=== PATIENT | male | born 1985 | race Caucasian/White ===

== ENCOUNTER 2017-04-16 21:16 | Emergency (ER) | payer SELFPAY ==
[~2017-04-16] VITALS: Ht 193 cm; Wt 150.0 kg
[2017-04-16 21:18] VITALS: BP 144/94; PULSE 98; RESP 16; TEMP 97.8; O2SAT 98
[2017-04-16 23:41] VITALS: BP 154/103; PULSE 78; RESP 15; O2SAT 99
--- NOTE | 2017-04-16 23:50 | PD ---
HPI Chief Complaint: Psychiatric Symptoms Time Seen by Provider: 23:39 Travel History International Travel<30 days: No Contact w/Intl Traveler<30days: No Traveled to known affect area: No History of Present Illness HPI The patient is a 31 year old male who presents to the [facility] emergency department with a history of alcoholism. He tried to stop drinking yesterday and then he began to have panic sensations, chest pressure, and diaphoresis. He does started drinking again. He reports that he drinks approximately one and a half liters of vodka daily. He first began to drink alcohol at 13 years of age. He began to start daily drinking at 22 years of age. His longest period of sobriety was 9 months. He relapsed a month ago. He has not been to an AA meeting in a month. He has had diarrhea times three today. No blood in his stool. Otherwise on review of systems, the patient denies any recent fevers, cough, congestion, neck pain, chest pain or shortness of breath today, abdominal pain, vomiting, urinary symptoms, or neurologic symptoms. [facility] Past Medical History Narrative Medical The patient's past medical history is significant for alcohol abuse, chronic left ankle pain. Past Surgical History Narrative Surgical The patient's past surgical history is significant for left ankle surgery. Social History Alcohol Use: Yes (1.5 L per day of vodka) Tobacco Use: Yes (half a pack a day) Substance Use: Yes (marijuana) Allergies-Medications (Allergen,Severity, Reaction): Coded Allergies: No Known Allergies (Unverified , 04/16/17) Narrative Medication None Review of Systems Except as stated in HPI: all other systems reviewed are Neg General / Constitutional: No: Fever Eyes: No: Visual changes HENT: No: Headaches Cardiovascular: No: Chest Pain or Discomfort Respiratory: No: Shortness of Breath Gastrointestinal: No: Abdominal Pain Genitourinary: No: Dysuria Musculoskeletal: No: Pain Skin: No Rash Neurologic: No: Weakness, Focal Abnormalities, Change in Mentation, Slurred Speech, Sensory Disturbance Psychiatric: Positive: Substance Abuse, No: Depression, Suicidal Ideations, Mood Disorder, Homicidal Ideation Endocrine: No: Polydipsia Hematologic/Lymphatic: No: Easy Bruising Physical Exam Narrative General: The patient is a well-developed well-nourished male in no acute distress. Head and Neck exam: Head is normocephalic atraumatic. Eyes: EOMI, pupils are equal round and reactive to light. Nose: Midline septum with pink mucous membranes Mouth: Dentition unremarkable. Moist mucus membranes. Posterior oropharynx is not erythematous. No tonsillar hypertrophy. Uvula midline. Airway patent. Neck: No palpable lymphadenopathy. No nuchal rigidity. No thyromegaly. Cardiovascular: Regular rate and rhythm without murmurs, gallops, or rubs. Lungs: Clear to auscultation bilaterally. No wheezes, rhonchi, or rales. Abdomen: Soft, without tenderness to palpation in all 4 quadrants of the abdomen. No guarding, rebound, or rigidity. Normal bowel sounds are audible. No tenderness on palpation of McBurney's point. Extremities: No clubbing, cyanosis, or edema. 2+ pulses in all 4 extremities. No calf tenderness on palpation. Back: No spinous process tenderness to palpation. No costovertebral angle tenderness to palpation. Neurologic Exam: Grossly nonfocal. The patient is not tremulous at this time. The patient has no asterixis. Skin Exam: No rash noted. Intact skin that is warm and dry. Data Data Last Documented VS Vital Signs Date Time Temp Pulse Resp B/P (MAP) Pulse Ox O2 Delivery O2 Flow Rate FiO2 04/16/17 23:41 78 15 154/103 (120) 99 Room Air 04/16/17 21:18 97.8 Orders Orders Electrocardiogram (04/17/17 00:02) Complete Blood Count With Diff (04/17/17 00:02) Comprehensive Metabolic Panel (04/17/17 00:02) Creatine Kinase (Cpk) (04/17/17 00:02) Ckmb (Isoenzyme) Profile (04/17/17 00:02) Troponin I (04/17/17 00:02) Prothrombin Time / Inr (Pt) (04/17/17 00:02) Act Partial Throm Time (Ptt) (04/17/17 00:02) Lipase (04/17/17 00:02) Urinalysis - C+S If Indicated (04/17/17 00:02) Magnesium (Mg) (04/17/17 00:02) Chest, Single Ap (04/17/17 00:02) Iv Access Insert/Monitor (04/17/17 00:02) Ecg Monitoring (04/17/17 00:02) Oximetry (04/17/17 00:02) Drug Screen, Random Urine (04/17/17 00:02) Alcohol (Ethanol) (04/17/17 00:02) Sodium Chlor 0.9% 1000 Ml Inj (Ns 1000 M (04/17/17 00:30) Ondansetron Inj (Zofran Inj) (04/17/17 00:30) Thiamine Inj (Thiamine Inj) (04/17/17 00:30) CKMB (04/17/17 00:24) CKMB% (04/17/17 00:24) Ed Discharge Order (04/17/17 02:02) Labs Laboratory Tests Test 04/17/17 00:24 White Blood Count 6.0 TH/MM3 Red Blood Count 5.23 MIL/MM3 Hemoglobin 15.7 GM/DL Hematocrit 45.9 % Mean Corpuscular Volume 87.6 FL Mean Corpuscular Hemoglobin 30.0 PG Mean Corpuscular Hemoglobin Concent 34.2 % Red Cell Distribution Width 15.2 % Platelet Count 173 TH/MM3 Mean Platelet Volume 9.3 FL Neutrophils (%) (Auto) 39.9 % Lymphocytes (%) (Auto) 53.3 % Monocytes (%) (Auto) 3.9 % Eosinophils (%) (Auto) 2.3 % Basophils (%) (Auto) 0.6 % Neutrophils # (Auto) 2.4 TH/MM3 Lymphocytes # (Auto) 3.2 TH/MM3 Monocytes # (Auto) 0.2 TH/MM3 Eosinophils # (Auto) 0.1 TH/MM3 Basophils # (Auto) 0.0 TH/MM3 CBC Comment DIFF FINAL Differential Comment Prothrombin Time 10.7 SEC Prothromb Time International Ratio 1.0 RATIO Activated Partial Thromboplast Time 28.8 SEC Blood Urea Nitrogen 6 MG/DL Creatinine 0.76 MG/DL Random Glucose 92 MG/DL Total Protein 7.9 GM/DL Albumin 3.7 GM/DL Calcium Level 8.5 MG/DL Magnesium Level 2.1 MG/DL Alkaline Phosphatase 109 U/L Aspartate Amino Transf (AST/SGOT) 46 U/L Alanine Aminotransferase (ALT/SGPT) 39 U/L Total Bilirubin 0.3 MG/DL Sodium Level 140 MEQ/L Potassium Level 4.1 MEQ/L Chloride Level 107 MEQ/L Carbon Dioxide Level 25.0 MEQ/L Anion Gap 8 MEQ/L Estimat Glomerular Filtration Rate 119 ML/MIN Total Creatine Kinase 278 U/L Creatine Kinase MB 1.1 NG/ML Troponin I LESS THAN 0.02 NG/ML Lipase 219 U/L Ethyl Alcohol Level 341 MG/DL MDM Medical Decision Making Medical Screen Exam Complete: Yes Emergency Medical Condition: Yes Medical Record Reviewed: Yes Interpretation(s) Last Impressions Chest X-Ray 04/17/17 0002 Signed Impressions: Service Date/Time: Monday, April 17, 2017 00:05 - CONCLUSION: No acute disease. Maximiliano Terry MD Differential Diagnosis Alcohol-related withdrawal syndrome, versus acute coronary syndrome, versus alcohol intoxication, versus gastritis, versus acid reflux Narrative Course During the course of the patients emergency department visit, the patients history, examination, and differential diagnosis were reviewed with the patient. The patient was placed on a environmental monitoring technician with oximetry and frequent blood pressure monitoring. The patient had IV access obtained and blood work sent for analysis. The patient is requesting help with detoxification. I explained that this hospitalist on a detox center, however the local detox center is called [facility]. He reports being aware of this local rehabilitation facility. A call was placed out to [facility] to find out if a bed was available. We were informed at 12:35 AM but no male detox beds are available at this time. The patient was initially provided normal saline 1 L IV fluid bolus, thiamine 100 mg IV. The patients laboratory studies were reviewed and remarkable for a CBC that is unremarkable, CMP is remarkable for a BUN of 6, AST 46, CPK 278, troponin I less than 0.02, lipase 219, PT PTT within normal limits. Alcohol level CCCXLI. Radiology studies were reviewed and remarkable for a chest x-ray that shows no acute abnormality. That the patient has no ride home available, the patient will be observed in the emergency department until his alcohol level comes down. The patient is instructed regarding following up with the [facility]. He is given information regarding the location. The patient is resting comfortably and feels better, is alert and in no distress. The patients results and examination findings were discussed with the patient. The repeat examination is unremarkable and benign. The history, exam, diagnostic testing, and current condition do not suggest any significant pathology to warrant further testing, continued ED treatment, admission, or surgical evaluation at this point. The vital signs have been stable. The patient does not have uncontrollable pain, intractable vomiting, or other significant symptoms. The patient's condition is stable and appropriate for discharge. The patient will pursue further outpatient evaluation with a primary care physician or other designated or consulting physician as indicated in the discharge instructions. The patient expressed understanding and was agreeable with this plan. Diagnosis Primary Impression: Alcohol intoxication Qualified Codes: F10.929 - Alcohol use, unspecified with intoxication, unspecified Additional Impression: Alcohol abuse Referrals: [facility] 1 day Patient Instructions: Abuse of Alcohol (ED), General Instructions Med/Other Pt SpecificInfo: No Change to Meds Disposition: 01 DISCHARGE HOME Condition: Stable Mikayla Ha MD Apr 16, 2017 23:50
--- NOTE | 2017-04-17 00:23 | RADRPT ---
EXAM DATE/TIME: 04/17/2017 00:05 [facility] COMPARISON: No previous studies available for comparison. INDICATIONS : Cough. MEDICAL HISTORY : None. SURGICAL HISTORY : None. ENCOUNTER: Initial ACUITY: 1 day PAIN SCORE: 0/10 LOCATION: Bilateral chest FINDINGS: A single view of the chest demonstrates the lungs to be symmetrically aerated without evidence of mas s, infiltrate or effusion. The cardiomediastinal contours are unremarkable. Osseous structures are intact. CONCLUSION: No acute disease. Maximiliano Terry MD on April 17, 2017 at 0:22 Board Certified Radiologist. This report was verified electronically.
[2017-04-17] MEDS ORDERED: THIAMINE INJ 100 MG in SODIUM CHLORIDE 0.9% INJ 100 ML IV ONE (00:30)
[2017-04-17] MEDS ORDERED: ONDANSETRON HCL 4 MG/2 ML VIAL IV ONE (00:30)
[2017-04-17] MEDS ORDERED: SODIUM CHLOR 0.9% 1000 ML INJ 1,000 ML IV ONE (00:30)
[2017-04-17 00:36] LABS: AUTOMATED NEUTROPHIL # 2.4 TH/MM3 (1.8-7.7); BASOPHIL % 0.6 % (0.0-2.0); EOSINOPHIL # 0.1 TH/MM3 (0-0.4); EOSINOPHIL % 2.3 % (0.0-4.0); HEMATOCRIT 45.9 % (39.0-51.0); HEMO FLAGS DIFF FINAL; LYMPH % 53.3 % (9.0-44.0); LYMPHOCYTE # 3.2 TH/MM3 (1.0-4.8); MEAN CELL VOLUME 87.6 FL (80.0-100.0); MEAN CORPUSCULAR HGB CONC 34.2 % (32.0-36.0); MONO % 3.9 % (0.0-8.0); NEUT % 39.9 % (16.0-70.0); PLATELET COUNT 173 TH/MM3 (150-450); RED BLOOD COUNT 5.23 MIL/MM3 (4.50-5.90); RED CELL DISTRIBUTION WIDTH 15.2 % (11.6-17.2)
[2017-04-17 00:44] LABS: APTT (PATIENT) 28.8 SEC (24.3-30.1); PROTHROMBIN TIME - PATIENT 10.7 SEC (9.8-11.6)
[2017-04-17 00:53] LABS: ALT (GPT) 39 U/L (12-78)
[2017-04-17 00:59] LABS: ALCOHOL 341 MG/DL (0-5); ALKALINE PHOSPHATASE 109 U/L (45-117); ANION GAP 8 MEQ/L (5-15); AST (GOT) 46 U/L (15-37); BLOOD UREA NITROGEN 6 MG/DL (7-18); CHLORIDE 107 MEQ/L (98-107); CREATINE KINASE 278 U/L (39-308); GLOMERULAR FILTRATION RATE 119 ML/MIN (>89); MAGNESIUM 2.1 MG/DL (1.5-2.5); POTASSIUM 4.1 MEQ/L (3.5-5.1); SODIUM (NA) 140 MEQ/L (136-145); TOTAL BILIRUBIN ADULT 0.3 MG/DL (0.2-1.0)
[2017-04-17 01:12] LABS: CKMB 1.1 NG/ML (0.5-3.6)
[2017-04-17 05:59] VITALS: BP 110/62
--- NOTE | 2017-04-17 21:21 | EKG ---
Date Performed: 04/17/2017 Time Performed: 00:53:18 PTAGE: 31 years EKG: Sinus rhythm MODERATE INTRAVENTRICULAR CONDUCTION DELAY NONSPECIFIC T-WAVE ABNORMALITY BORDERLINE ECG NO PREVIOUS TRACING DOCTOR: Gerardo Ferrera Interpretating Date/Time 04/17/2017 21:20:44
== END 2017-04-17 07:52 | disposition home or self-care (01) ==
LOC: NEPC 21:16 → NEPD 04-17 07:52
DX: F10.129 Alcohol abuse with intoxication, unspecified (principal); R19.7 Diarrhea, unspecified; R94.31 Abnormal electrocardiogram [ECG] [EKG]; M25.572 Pain in left ankle and joints of left foot; G89.29 Other chronic pain; F17.200 Nicotine dependence, unspecified, uncomplicated
CPT/HCPCS: 71010; 80053; 80307; 82550; 82552; 83690; 83735; 84484; 85025; 85610; 85730; 93005; 96374; 96375; 99285; J2405; J3411; J7030